=== PATIENT | male | born 1955 | race Caucasian/White ===

== ENCOUNTER → 2017-01-11 | Day surgery (SDC) | payer OTHER, MEDICARE ==
[~2017-01-11] VITALS: Ht 182.9 cm; Wt 86.2 kg
[~2017-01-11] MED LIST: BENZTROPINE MESY1 M1 PO; DIPHENHYDRAMINE50 M1 PO; FLUPHENAZINE HC10 M1 PO; FLUTICASONE PRO16 GM NASB; LISINOPRIL10 M1 PO; MONTELUKAST SOD10 M1 PO; PATANASE30.5 GM NASB
--- NOTE | 2017-01-13 11:56 | Operative Report ---
Operative/Inv Procedure Report Surgery Date: 01/11/17 Name of Procedure: Wide local excision of melanotic scalp lesion with full-thickness skin graft closure, harvest site base of neck, lesion diameter 3.3 cm, closure 10 cm Pre-Operative Diagnosis: Melanotic skin lesion scalp Post-Operative Diagnosis: Same Estimated Blood Loss: scant Surgeon/Blow Torch Burner: DEREK MARCIAL,TAMIKA Mathews Anesthesia: general endotracheal tube Operative/Procedure Note Note: Patient positioned on the OR table supine and after successful induction of general anesthesia, repositioned with head turned to the left this lesion was on the right parietal area a border was clipped around it and then that in the ipsilateral neck and the area between were prepped and draped in usual sterile fashion. This lesion was irregular with several separate areas, so we aimed a circular incision around it with at least a 6 mm border, in some areas over a centimeter, then we infiltrated local anesthetic, oriented with sutures for the pathologist in 2 areas, and excised the lesion, through the subcutaneous layer to the galea, one piece used cautery for hemostasis then placed a moistened Ray- Amaya while we harvested a similarly sized piece from the base of his neck laterally on the right, an approximate wound excision piece was drawn then we injected local anesthetic and we made the excision full-thickness with a 15 blade placed that in saline, then closed that primarily in line with the skin lines in layers with 3-0 Vicryl sutures subdermally and 4-0 nylon for skin. Then with a 10 blade we scraped off the fat on the graft we fenestrated with the tip of the blade laid it into the excision site and tacked it down with multiple interrupted 4-0 nylon's keeping the ends long on 4 of them which were then used to tie down the dressing, consisting of Xeroform a moistened cotton ball and gauze and tape. The diameter of the harvest and excision site was a little over 3 cm each. EBL minimal lap and sponge counts correct wound expectancy clean IV fluids crystalloid complications none patient tolerated the procedure well was awakened extubated and returned to recovery room in satisfactory condition.
== END ==
LOC: STS 02:56
DX: C43.4 Malignant melanoma of scalp and neck (principal); I10 Essential (primary) hypertension; Z87.891 Personal history of nicotine dependence
CPT/HCPCS: 88305; J2250

== ENCOUNTER → 2017-02-15 | Day surgery (SDC) | payer OTHER, MEDICARE ==
[~2017-02-15] VITALS: Ht 182.9 cm; Wt 84.4 kg
--- NOTE | 2017-02-15 13:33 | NUCLEAR MEDICINE REPORT ---
RADIONUCLIDE LYMPHOSCINTIGRAPHY CLINICAL INDICATION: Malignant melanoma TECHNIQUE: A total of 1.0 millicuries technetium 99m Lymphoseek was injected in 3 divided doses subcutaneously near patient's previously resected melanoma in the right scalp region region by AUSTYN Khan. Subsequently, images of the head to the proximal thighs were obtained up to 40 minutes post injection. These images were all obtained with a gamma scintillation camera using a transmission flood source to delineate the body contours. FINDINGS: In addition to activity at the injection site, multiple foci of activity are visualized in the right cervical destiny region and 3 of these foci significantly more intense than the others. In addition more inferiorly several additional foci of activity are visualized in the lower right cervical region. No foci significantly inferior to the right lower cervical region are visualized. Images of the abdomen show diffuse activity in the liver which is likely due to some intravenous injection of the radiopharmaceutical. IMPRESSION: A sentinel node in the right cervical region as well as multiple second echelon nodes are visualized.
--- NOTE | 2017-02-17 19:01 | Operative Report ---
See Addendum Operative/Inv Procedure Report Surgery Date: 02/15/17 Name of Procedure: [place] lymph node biopsy (2) right posterior lateral neck, injection of blue dye Pre-Operative Diagnosis: Malignant melanoma right scalp Post-Operative Diagnosis: Same Estimated Blood Loss: scant Surgeon/Senior Research Consultant: DEREK MARCIAL,TAMIKA MCINTOSH Anesthesia: general endotracheal tube Operative/Procedure Note Note: Patient was positioned supine. After successful induction of general anesthesia, the patient's right aspect of the scalp surrounding the initial excision site the ear face and neck were all clipped prepped and draped in usual sterile fashion we were guided by the gamma probe and the preoperative CT scan and also the lymphoscintigraphy just done before the surgery diluted blue dye was then injected at the edge of the excision site on the scalp about 2-1/2 mL's mostly on the inferior aspect of the graft excision site. Then using the gamma probe we found 3 hot spots little lower down in the superior lateral posterior neck just behind the ear these 3 separate areas did correspond to the lymphoscintigraphy and we marked them and planned our incisions to of them could be encompassed with one incision one of them was a little more posterior lateral and needed a separate smaller incision so these were drawn and then local anesthetic was injected and then we made these 2 incisions I approached the smaller one first the lymph node here was difficult to find it was very small fibrotic buried beneath the fascia that we found and the count we took it out was 800 at the primary site was about 20,000 this lymph node measured less than a centimeter was submitted fresh that incision was then irrigated inspected for hemostasis and closed in layers using 3-0 Vicryl sutures subdermally and 4-0 Monocryl subcuticular for the skin itself. Next the longer incision which was about 4 cm long was made also with a 15 blade, deepened through the dermis and then using cautery for hemostasis and using the gamma probe to locate these 2 lymph nodes superior one we could find similar to the other one was also less than a centimeter. In the fascia and counts here were about 1200, however the other one was not so distinct actually was deep to the sternocleidomastoid muscle origin and we decided not to pursue it in the interest of the morbidity. Also this spot did not give consistent elevated counts. This incision was then closed also in layers using 3-0 Vicryl subdermally and a running subcuticular Biosyn suture for the skin itself both incisions were covered with Mastisol Steri-Strips Telfa and Tegaderm. Estimated blood loss was minimal, lap and sponge counts were correct, wound expectancy was clean-contaminated, IV fluids crystalloid, complications none, patient tolerated the procedure well and was returned to the recovery room in satisfactory condition.
== END ==
LOC: STS 01:11
DX: C43.4 Malignant melanoma of scalp and neck (principal); I10 Essential (primary) hypertension; Z87.891 Personal history of nicotine dependence
CPT/HCPCS: 88307; A9520; J2250